=== PATIENT | male | born 1945 | race Caucasian/White ===

== ENCOUNTER 2021-12-31 11:37 | Inpatient (IN) ==
[2021-12-31 12:20] LABS: ABS Basophils 0.1 10^3/ul (0-0.2); ABS Lymphocytes 0.7 10^3/ul (1.0-4.8); ABS Monocytes 0.6 10^3/ul (0-0.8); ABS Neutrophils 11.2 10^3/ul (1.5-7.7); Eosinophil % 0.3 %; Hematocrit 36 % (42-52); Hemoglobin 11.5 g/dL (14.0-18.0); Lymphocyte % 5.6 %; Mean Corpuscular HGB Conc 32 g/dL (31-36); Mean Corpuscular Hemoglobin 28 pg (27-31); Mean Corpuscular Volume 87 fL (80-94); Mean Platelet Volume 6.2 fL (7.4-10.4); Platelet Count 468 10^3/uL (150-450); Red Blood Count 4.14 10^6 /uL (4.18-5.48); Red Cell Distribution Width 15 % (10-15); White Blood Count 12.5 10^3/uL (3.5-10.8)
[2021-12-31 12:31] LABS: INR 1.41 (0.89-1.11)
[2021-12-31] MEDS ORDERED: Furosemide 40 mg/4 ml IV VIAL IV SLOW PU ONE (13:10)
[2021-12-31 13:28] LABS: Albumin 3.7 g/dL (3.2-5.2); Globulin 3.7 g/dL (2-4); Potassium 4.5 mmol/L (3.5-5.0); Total Bilirubin 0.6 mg/dL (0.2-1.0); Total Protein 7.4 g/dL (6.4-8.9); eGFR CKD-EPI 88.8 (>60)
[2021-12-31 13:51] LABS: High Sensitivity Troponin 1 Hr 361 pg/mL (<20)
[2021-12-31] MEDS ORDERED: Magnesium Hydroxide LIQ 30 ML UDC PO PRN (15:38)
[2021-12-31] MEDS ORDERED: Furosemide 40 mg/4 ml IV VIAL IV ONE (16:00)
[2021-12-31] MEDS ORDERED: Perflutren Lipid Microsphere 3 ML VIAL ONE (16:08)
[2021-12-31 16:16] LABS: C Reactive Protein 133.55 mg/L (<8.01)
[2021-12-31 16:34] LABS: Ferritin 138.5 ng/mL (24-336)
[2021-12-31 16:37] LABS: Folate 9.66 ng/mL (5.90-24.80)
[2021-12-31] MEDS: cefTRIAXone 1 gm/50 mL D5W 1 GM/50 ML BAG IV SCH (16:56)
[2021-12-31] MEDS ORDERED: cefTRIAXone 1 gm/50 mL D5W 1 GM/50 ML BAG IV ONE (17:00)
[2021-12-31] MEDS ORDERED: Azithromycin 500 mg/250 mL NS IVPB ONE (17:30)
[2021-12-31 17:53] LABS: HDL Cholesterol 38.1 mg/dL
[2021-12-31 18:06] LABS: TSH Ultra Thyroid Stim Horm 2.91 mcIU/mL (0.34-5.60)
[2021-12-31] MEDS ORDERED: Heparin 5000 UNITS/ML 1 mL VIAL IV SCH ×2 (20:00)
[2021-12-31] MEDS: Nitroglycerin 0.6 mg/hr PATCH (15 mg) TRANSDERM SCH (20:27)
[2021-12-31] MEDS: Heparin DRIP 25,000 UNITS BAG 25,000 UNITS/500 ML BAG IV SCH (23:34)
[2022-01-01 05:48] LABS: ABS Basophils 0.1 10^3/ul (0-0.2); ABS Eosinophils 0.1 10^3/ul (0-0.6); ABS Lymphocytes 1.3 10^3/ul (1.0-4.8); ABS Monocytes 0.8 10^3/ul (0-0.8); ABS Neutrophils 8.6 10^3/ul (1.5-7.7); Eosinophil % 0.5 %; Hematocrit 32 % (42-52); Hemoglobin 10.4 g/dL (14.0-18.0); Lymphocyte % 11.7 %; Mean Corpuscular HGB Conc 33 g/dL (31-36); Mean Corpuscular Hemoglobin 28 pg (27-31); Mean Corpuscular Volume 85 fL (80-94); Mean Platelet Volume 6.3 fL (7.4-10.4); Platelet Count 405 10^3/uL (150-450); Red Blood Count 3.71 10^6 /uL (4.18-5.48); Red Cell Distribution Width 15 % (10-15); White Blood Count 10.9 10^3/uL (3.5-10.8)
[2022-01-01 05:50] LABS: INR 1.47 (0.89-1.11)
[2022-01-01 06:13] LABS: Calcium 8.2 mg/dL (8.6-10.3); Potassium 3.7 mmol/L (3.5-5.0); eGFR CKD-EPI 68.8 (>60)
[2022-01-01] MEDS ORDERED: Heparin 2 UNITS/ML 1000 mls 0 ML IV ONE (11:19)
[2022-01-01] MEDS ORDERED: Iohexol 350 (CONTRAST) 100 ML PAK IV ONE (11:19)
[2022-01-01] MEDS ORDERED: Lidocaine 1% MPF 5 ML VIAL ONE (11:19)
[2022-01-01] MEDS ORDERED: Furosemide 40 mg/4 ml IV VIAL IV SLOW PU ONE (12:00)
[2022-01-01] MEDS: cefTRIAXone 1 gm/50 mL D5W 1 GM/50 ML BAG IV SCH (16:22)
[2022-01-01] MEDS: Azithromycin 500 mg/250 ml NS 500 MG/250 ML BAG IVPB SCH (18:03)
[2022-01-01] MEDS: Heparin DRIP 25,000 UNITS BAG 25,000 UNITS/500 ML BAG IV SCH (19:48)
[2022-01-01] MEDS: Nitroglycerin 0.6 mg/hr PATCH (15 mg) TRANSDERM SCH (20:55)
[2022-01-02 00:19] LABS: High Sens Troponin Baseline 327 pg/mL (<20)
[2022-01-02 01:22] LABS: High Sensitivity Troponin 1 Hr 306 pg/mL (<20)
[2022-01-02 01:34] LABS: Creatine Kinase 77 U/L (10-223)
[2022-01-02 05:32] LABS: ABS Basophils 0.1 10^3/ul (0-0.2); ABS Eosinophils 0.3 10^3/ul (0-0.6); ABS Lymphocytes 1.6 10^3/ul (1.0-4.8); ABS Monocytes 0.6 10^3/ul (0-0.8); ABS Neutrophils 5.5 10^3/ul (1.5-7.7); Eosinophil % 3.2 %; Hematocrit 33 % (42-52); Hemoglobin 10.8 g/dL (14.0-18.0); Lymphocyte % 19.3 %; Mean Corpuscular HGB Conc 33 g/dL (31-36); Mean Corpuscular Hemoglobin 28 pg (27-31); Mean Corpuscular Volume 85 fL (80-94); Mean Platelet Volume 6.4 fL (7.4-10.4); Platelet Count 426 10^3/uL (150-450); Red Blood Count 3.85 10^6 /uL (4.18-5.48); Red Cell Distribution Width 15 % (10-15); White Blood Count 8.1 10^3/uL (3.5-10.8)
[2022-01-02 05:35] LABS: INR 1.44 (0.89-1.11)
[2022-01-02 06:12] LABS: Calcium 8.2 mg/dL (8.6-10.3)
[2022-01-02] MEDS ORDERED: fentaNYL 100 mcg/2 ml 50 MCG/ML VIAL ONE (08:06)
[2022-01-02] MEDS ORDERED: VERAPAMIL 2.5 MG/ML 2 ML VIAL ** 5 mg/2 ml ONE (08:06)
[2022-01-02] MEDS ORDERED: nitroGLYCERIN DRIP 25,000 MCG/250 ML BTL ONE (08:06)
[2022-01-02] MEDS ORDERED: Heparin 2 UNITS/ML 1000 mls 2,000 ML IV ONE (08:06)
[2022-01-02] MEDS ORDERED: Heparin 1,000 UNIT/ML 10 ml (10,000 UNITS) CATHLAB/DIALYSIS ONE (08:06)
[2022-01-02] MEDS ORDERED: Midazolam 5 mg/5 ml VIAL 1 mg/ml 5 ml VIAL (5 mg) ONE (08:06)
[2022-01-02] MEDS ORDERED: Lidocaine 1% MPF 5 ML VIAL ONE ×4 (08:07→09:02)
[2022-01-02] MEDS ORDERED: Iohexol 350 (CONTRAST) 100 ML PAK IV ONE ×2 (08:07→09:22)
[2022-01-02] MEDS ORDERED: Furosemide 40 mg/4 ml IV VIAL IV SLOW PU ONE (08:45)
[2022-01-02] MEDS ORDERED: Heparin 2 UNITS/ML 1000 mls 1,000 ML IV ONE (08:57)
[2022-01-02] MEDS: Iron Sucrose 200 MG in NS 0.9% 100 ml BAG 100 ML IVPB SCH (11:35)
[2022-01-02] MEDS ORDERED: Furosemide 20 mg/2 ml IV VIAL IV ONE (14:49)
[2022-01-02] MEDS: cefTRIAXone 1 gm/50 mL D5W 1 GM/50 ML BAG IV SCH (16:46)
[2022-01-02] MEDS: Azithromycin 500 mg/250 ml NS 500 MG/250 ML BAG IVPB SCH (17:48)
[2022-01-02] MEDS: Nitroglycerin 0.6 mg/hr PATCH (15 mg) TRANSDERM SCH (20:16)
[2022-01-02] MEDS: Heparin DRIP 25,000 UNITS BAG 25,000 UNITS/500 ML BAG IV SCH (22:08)
[2022-01-03 08:32] LABS: ABS Basophils 0.1 10^3/ul (0-0.2); ABS Eosinophils 0.3 10^3/ul (0-0.6); ABS Lymphocytes 1.4 10^3/ul (1.0-4.8); ABS Monocytes 0.5 10^3/ul (0-0.8); ABS Neutrophils 4.1 10^3/ul (1.5-7.7); Eosinophil % 4.4 %; Hematocrit 33 % (42-52); Hemoglobin 11.4 g/dL (14.0-18.0); Lymphocyte % 21.4 %; Mean Corpuscular HGB Conc 34 g/dL (31-36); Mean Corpuscular Hemoglobin 29 pg (27-31); Mean Corpuscular Volume 86 fL (80-94); Mean Platelet Volume 6.6 fL (7.4-10.4); Platelet Count 446 10^3/uL (150-450); Red Blood Count 3.88 10^6 /uL (4.18-5.48); Red Cell Distribution Width 15 % (10-15); White Blood Count 6.4 10^3/uL (3.5-10.8)
[2022-01-03] MEDS ORDERED: Furosemide 20 mg/2 ml IV VIAL IV SLOW PU ONE (08:39)
[2022-01-03 08:47] LABS: Activated Partial Thrombo Time 54.8 seconds (26.0-38.0); INR 1.38 (0.89-1.11)
[2022-01-03] MEDS: Furosemide 20 mg/2 ml IV VIAL IV SCH (09:32)
[2022-01-03] MEDS: Iron Sucrose 200 MG in NS 0.9% 100 ml BAG 100 ML IVPB SCH (09:33)
[2022-01-03] MEDS: cefTRIAXone 1 gm/50 mL D5W 1 GM/50 ML BAG IV SCH (16:19)
[2022-01-03] MEDS: Heparin DRIP 25,000 UNITS BAG 25,000 UNITS/500 ML BAG IV SCH (20:59)
[2022-01-03] MEDS: Nitroglycerin 0.6 mg/hr PATCH (15 mg) TRANSDERM SCH (21:02)
[2022-01-03] MEDS: Benzocaine/Menthol LOZ PO PRN (21:39)
[2022-01-04 06:04] LABS: ABS Eosinophils 0.4 10^3/ul (0-0.6); ABS Lymphocytes 1.6 10^3/ul (1.0-4.8); ABS Monocytes 0.7 10^3/ul (0-0.8); ABS Neutrophils 3.9 10^3/ul (1.5-7.7); Eosinophil % 6.6 %; Hematocrit 31 % (42-52); Hemoglobin 10.5 g/dL (14.0-18.0); Lymphocyte % 23.7 %; Mean Corpuscular HGB Conc 34 g/dL (31-36); Mean Corpuscular Hemoglobin 30 pg (27-31); Mean Corpuscular Volume 86 fL (80-94); Mean Platelet Volume 6.7 fL (7.4-10.4); Nucleated Red Blood Cells % 0.1; Platelet Count 414 10^3/uL (150-450); Red Blood Count 3.55 10^6 /uL (4.18-5.48); Red Cell Distribution Width 15 % (10-15); White Blood Count 6.7 10^3/uL (3.5-10.8)
[2022-01-04 06:28] LABS: Calcium 8.6 mg/dL (8.6-10.3); Potassium 4.1 mmol/L (3.5-5.0)
[2022-01-04] MEDS: Furosemide 20 mg/2 ml IV VIAL IV SCH (09:33)
[2022-01-04] MEDS: Iron Sucrose 200 MG in NS 0.9% 100 ml BAG 100 ML IVPB SCH (09:33)
[2022-01-04 10:08] LABS: Rapid COVID-19 Molecular Undetected (Undetected)
[2022-01-04] MEDS: Nitroglycerin 0.6 mg TAB SL PRN ×2 (12:07→16:00)
[2022-01-04] MEDS: cefTRIAXone 1 gm/50 mL D5W 1 GM/50 ML BAG IV SCH (15:49)
[2022-01-04] MEDS: Benzocaine/Menthol LOZ PO PRN (20:06)
[2022-01-04] MEDS: Nitroglycerin 0.6 mg/hr PATCH (15 mg) TRANSDERM SCH (20:08)
[2022-01-04] MEDS ORDERED: Furosemide 20 mg/2 ml IV VIAL IV ONE (20:15)
[2022-01-04] MEDS: Heparin DRIP 25,000 UNITS BAG 25,000 UNITS/500 ML BAG IV SCH (21:48)
[2022-01-05 06:46] LABS: Hematocrit 31 % (42-52); Hemoglobin 10.7 g/dL (14.0-18.0); Mean Corpuscular HGB Conc 34 g/dL (31-36); Mean Corpuscular Hemoglobin 30 pg (27-31); Mean Corpuscular Volume 87 fL (80-94); Mean Platelet Volume 6.6 fL (7.4-10.4); Platelet Count 396 10^3/uL (150-450); Red Blood Count 3.59 10^6 /uL (4.18-5.48); Red Cell Distribution Width 16 % (10-15); White Blood Count 8.5 10^3/uL (3.5-10.8)
[2022-01-05 08:27] VITALS: BP 134/62
[2022-01-05] MEDS ORDERED: Pneumococcal Vac 23-Polyvalent IM ONE (09:00)
[2022-01-05] MEDS ORDERED: Furosemide 20 mg/2 ml IV VIAL IV SCH (09:00)
[2022-01-05] MEDS: Iron Sucrose 200 MG in NS 0.9% 100 ml BAG 100 ML IVPB SCH (11:45)
[2022-01-05] MEDS ORDERED: Furosemide 20 mg/2 ml IV VIAL IV SLOW PU ONE (14:00)
== END 2022-01-05 14:53 | disposition short-term general hospital (02) | DRG 190 ==
LOC: ED 11:37 → SUATTDRO 15:38 → EDHOLD 15:38 → MEDTELE 21:35
PROVIDERS: ADMIT Internal Medicine; ATTEND Internal Medicine